=== PATIENT | female | born 1955 | race Caucasian/White ===

== ENCOUNTER → 2016-12-29 | Outpatient (CLI) | payer OTHER | LOC: FIMAGING 10:50 | DX: Z12.39 Encounter for other screening for malignant neoplasm of breast (principal); N64.9 Disorder of breast, unspecified ==

== ENCOUNTER → 2017-06-02 | Outpatient (CLI) | payer OTHER | LOC: FIMAGING 10:52 | DX: Z12.31 Encounter for screening mammogram for malignant neoplasm of breast (principal); Z80.3 Family history of malignant neoplasm of breast | CPT/HCPCS: G0202 ==

== ENCOUNTER 2018-03-12 10:19 | Day surgery (SDC) | payer OTHER ==
--- NOTE | 2018-03-11 15:36 | GHP ---
[f rep st] HISTORY AND PHYSICAL DATE OF ADMISSION: 03/12/2018 HISTORY OF PRESENT ILLNESS: This is a 63-year-old female with a several-month history of right knee pain worsening with use and with time. MRI exams revealed mild osteoarthritic changes with a large i ntra-articular loose body and a complex medial meniscal tear. She wishes to have surgery in order to resolve the problems. ALLERGIES: She lists no drug allergies. CURRENT MEDICATIONS: Include levothyroxine, prednisone and tramadol. PRIOR MEDICAL PROBLEMS: Include thyroid issues. PRIOR SURGERIES: Include total knee replacement with later manipulation. She had thyroid surgery, o rthopedic surgery x1 and other x1. SOCIAL HISTORY: She has never been a smoker. She is a social drinker. PHYSICAL EXAMINATION: HEENT: The patient's pupils are equal, round, and reactive to light. CHEST: Clear to auscultation. HEART: Regular rate and rhythm. ABDOMEN: Soft and nontender. RIGHT KNEE: She has a mild effusion to the knee. She is stable throughout, she is tender to the posterior port ion of the medial joint line with a negative grind sign to the patella. MRI revealed a complex medial meniscal tear. Intra-articular loose body and chondromalacia patella. ASSESSMENT AND PLAN: The patient is status post right knee medial meniscal tear with loose body and mild arthritis. PLAN: Take her to the operating room to undergo a right knee scope. /[id number]/MODL
--- NOTE | 2018-03-12 07:25 | PDHPUP ---
History & Physical Update H&P update statement: This history and physical update is based on an assessment of the patient which was completed after admission or registration (within 24 hours), but prior to the surgery/procedure. H&P update: H&P reviewed & patient examined, no change in patient's condition since H&P completed
[~2018-03-12 10:19] MED LIST: ACETAMINOPHEN 500 MG TAB PO ONE; LR 1,000 ML IV SCH; ceFAZolin 2 GM/DEXTROSE 100 ML IV ONE
[2018-03-12] MEDS ORDERED: LABETALOL HCL 5 MG/ML 20 ML MDV IVP ONE (10:58)
[2018-03-12] MEDS ORDERED: MIDAZOLAM 2 MG/2 ML VIAL IVP ONE (10:59)
[2018-03-12] MEDS ORDERED: LR 1,000 ML IV ONE (11:00)
[2018-03-12] MEDS ORDERED: LIDOCAINE 1% 2 ML INJ ID PRN (11:00)
[2018-03-12] MEDS ORDERED: BUPIVACAINE/EPI 0.5% 30 ML SDV ONE (11:04)
[2018-03-12] MEDS ORDERED: LIDOCAINE 1% 2 ML INJ ONE (11:07)
[2018-03-12] MEDS ORDERED: ACETAMINOPHEN 500 MG TAB ONE (11:07)
[2018-03-12] MEDS ORDERED: CEFAZOLIN 2 GM/DEXTROSE/100 ML BAG IV ONE (11:08)
--- NOTE | 2018-03-12 12:05 | PDANEPAE ---
ANE Past Medical History - Cardiovascular History Hx Hypertension: No Hx Arrhythmias: No Hx Chest Pain: No Hx Coronary Artery / Peripheral Vascular Disease: No Hx CHF / Valvular Disease: No Hx Palpitations: No - Pulmonary History Hx COPD: No Hx Asthma/Reactive Airway Disease: No Hx Recent Upper Respiratory Infection: No Hx Oxygen in Use at Home: No Hx Sleep Apnea: No Sleep Apnea Screening Result - Last Documented: Negative - Neurologic History Hx Cerebrovascular Accident: No Hx Seizures: No Hx Dementia: No - Endocrine History Hx Diabetes: No Hypothyroid: Yes - Renal History Hx Renal Disorders: No - Liver History Hx Hepatic Disorders: No - Neurological & Psychiatric Hx Hx Neurological and Psychiatric Disorders: No - Cancer History Hx Cancer: Yes 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 TOE NAILS REMOVED ANE Review of Systems Review of Systems: - Exercise capacity METS (RN): 4 METS ANE Patient History - Allergies Allergies/Adverse Reactions: No Known Allergies Allergy (Verified 03/05/18 14:15) - Home Medications Home Medications: Acetaminophen 03/05/18 [Last Taken 02/26/18] Aspirin 03/05/18 [Last Taken 02/26/18] Ibuprofen 03/05/18 [Last Taken 02/26/18] Levothyroxine 03/05/18 [Last Taken 03/12/18 06:00] Turmeric 03/05/18 [Last Taken 02/26/18] - NPO status NPO Since - Liquids (Date): 03/12/18 NPO Since - Liquids (Time): 06:00 NPO Since - Solids (Date): 03/11/18 NPO Since - Solids (Time): 18:30 - Smoking Hx Smoking Status: Never smoked - Family Anes Hx Family Hx Anesthesia Complications: none ANE Labs/Vital Signs - Vital Signs Blood Pressure: 160/119 Heart Rate: 75 Respiratory Rate: 14 O2 Sat (%): 96 Height: 167.64 cm Weight: 87.543 kg ANE Physical Exam - Airway Mallampati Score: Class 2 - ASA Status ASA Status: II ANE Anesthesia Plan Anesthesia Plan: GA w LMA
[2018-03-12] MEDS ORDERED: MIDAZOLAM 2 MG/2 ML VIAL ONE (12:27)
[2018-03-12] MEDS ORDERED: PROPOFOL 200 MG/20 ML VIAL ONE (12:28)
[2018-03-12] MEDS ORDERED: LIDOCAINE 2% JELLY 5 ML TUBE ONE (12:28)
[2018-03-12] MEDS ORDERED: fentaNYL 100 MCG/2 ML INJ ONE ×3 (12:28→14:02)
[2018-03-12] MEDS ORDERED: ONDANSETRON 4 MG/2 ML VIAL ONE (12:28)
[2018-03-12] MEDS ORDERED: METOCLOPRAMIDE 10 MG/2 ML VIAL ONE (12:28)
[2018-03-12] MEDS ORDERED: PROMETHAZINE HCL 25 MG/ML INJ IVP PRN ×2 (13:43→13:45)
[2018-03-12] MEDS ORDERED: LACTULOSE 20 GM/30 ML UDCUP PO PRN (13:43)
[2018-03-12] MEDS ORDERED: traMADol 50 MG TAB PO PRN (13:43)
[2018-03-12] MEDS ORDERED: ONDANSETRON 4 MG/2 ML VIAL IVP PRN (13:43)
[2018-03-12] MEDS ORDERED: METOCLOPRAMIDE 10 MG/2 ML VIAL IVP PRN (13:43)
[2018-03-12] MEDS ORDERED: oxyCODONE IR 5 MG TAB PO PRN (13:43)
[2018-03-12] MEDS ORDERED: CYCLOBENZAPRINE 10 MG TAB PO PRN (13:43)
[2018-03-12] MEDS ORDERED: ONDANSETRON DISINTEGRATING 4 MG TAB PO PRN (13:43)
[2018-03-12] MEDS ORDERED: PROMETHAZINE HCL 25 MG SUPPR PR PRN (13:43)
[2018-03-12] MEDS ORDERED: DIPHENOXYLATE/ATROPINE LOMOTIL 1 TAB PO PRN (13:43)
[2018-03-12] MEDS ORDERED: POLYETHYLENE GLYCOL 3350 17 GM PKT PO PRN (13:43)
[2018-03-12] MEDS ORDERED: BISACODYL 10 MG SUPP PR PRN (13:43)
[2018-03-12] MEDS ORDERED: KETOROLAC 15 MG/1 ML SDV IVP ONE (13:43)
[2018-03-12] MEDS ORDERED: TEMAZEPAM 15 MG CAP PO PRN (13:43)
[2018-03-12] MEDS ORDERED: diphenhydrAMINE 25 MG CAP PO PRN (13:43)
[2018-03-12] MEDS ORDERED: MAGNESIUM HYDROXIDE 30 ML UDCUP PO PRN (13:43)
--- NOTE | 2018-03-12 13:43 | POSTOPPROG ---
Post Op Note Date of Operation: 03/12/18 Surgeon: Nivia Arechiga Anesthesia: LMA Pre-op Diagnosis: r mmt/lmt/lb/oa Procedure: r knee scope w/ partial med/lat menisectomy, chondroplasty and rem lb Inf/Abcess present in the surg proc area at time of surgery?: No Depth: Deep Incisional (Fascial) EBL: 50-100
[2018-03-12] MEDS ORDERED: NALOXONE HCL 0.4 MG/ML INJ IVP PRN (13:45)
[2018-03-12] MEDS ORDERED: LR 500 ML IV PRN (13:45)
--- NOTE | 2018-03-12 13:47 | POSTANESTH ---
Post Anesthetic Evaluation Cardiovascular Status: Normal, Stable Respiratory Status: Normal, Stable Level of Consciousness/Mental Status: Can Participate in Eval, Mildly Sleepy, Arousable Pain Control: Adequate, Prn Tx Ordered Nausea/Vomiting Control: Adequate, Prn Tx Ordered Complications Possibly Related to Anesthesia: None Noted
[2018-03-12] MEDS ORDERED: LR 1,000 ML IV SCH (14:00)
[2018-03-12] MEDS: fentaNYL 100 MCG/2 ML INJ IVP PRN ×2 (14:03→14:09)
--- NOTE | 2018-03-12 14:26 | GOP ---
[f rep st] OPERATIVE REPORT DATE OF OPERATION: 03/12/2018 SURGEON: Nivia Arechiga MD ANESTHESIA: Via LMA. PREOPERATIVE DIAGNOSIS: Right knee medial and lateral meniscal tears with osteoarthritis and loose b alexander. POSTOPERATIVE DIAGNOSIS: Right knee medial and lateral meniscal tears with osteoarthritis and loose body, with grade 3 chondral changes to the medial compartment and patellofemoral compartment with a s mall area of grade 4 chondral changes to the lateral femoral condyle. PROCEDURE PERFORMED: 1. Right knee arthroscopy with partial medial and partial lateral meniscectomies. 2. Removal of loose body. 3. Chondroplasty of all 3 compartments. FINDINGS: INDICATIONS: This is a 63-year-old female with a several-month history of right knee pain worsening with use and with time despite multiple conservative measures. MRI exam reveals tearing of the media l meniscus, lesser tearing of the lateral meniscus, some osteoarthritic changes and a loose body in t he suprapatellar pouch. She wishes to have surgery in order to resolve the problem. DESCRIPTION OF PROCEDURE: Patient brought to the operating room after the right side had been identi fied as correct side by the patient, nurse and physician. Once in the operating room she was placed under general anesthesia using LMA. Once asleep, a tourniquet was placed around the upper portion of the right thigh, and both legs placed in appropriate leg-cid. Right lower extremity was then manuel rilely prepped and draped in usual fashion using GSI solution. Once prepped and draped, limb was exs anguinated, tourniquet inflated to 250 mmHg. Incision was made in the superomedial portion of the kn ee with an outflow trocar introduced without difficulty. A second incision was made lateral to the p atellar tendon between the inferior pole of the patella and the tibial plateau with the camera introd uced without difficulty. Inspection of the joint revealed a large loose body in the lateral portion of the suprapatellar pouch, but no loose bodies along the medial and lateral gutter. There were grad e 3 chondral changes to the patella and to the trochlea. Further inspection revealed the AC ligament to be intact. Inspection of the medial compartment revealed tearing of the posterior horn and body of the medial meniscus as well as grade 3 chondral changes to the medial femur and tibia. Inspection of the lateral compartment revealed fraying of the body and posterior horn of the lateral meniscus a long with a chondral flap lesion to the lateral femoral condyle. Therefore, a third incision was mad e medial to the patellar tendon between the inferior pole of the patella and tibial plateau, and alte rnating using a straight biter and a 4.5 mm smooth shaver was used to debride and debulk tears of the medial and lateral meniscus and also remove the loose fragments of cartilage from the medial and lat eral femoral condyles. Loose body was able to be removed using combination of biter and grasper, the n a shaver was used to remove the loose fragments of cartilage from the patellofemoral joint. Once c ompleted, all instruments were removed from the knee, with 30 cc of Marcaine infused in the knee join t. The 3 portal sites were closed using 3-0 nylon suture in a [id number] type stitch. The woun ds were dressed with Xeroform, 4 x 4, wrapped in Webril. Tourniquet was deflated at 33 minutes. Leg was completely undraped in the operating room. The right leg was taken out of its leg-cid, tourn iquet removed from the thigh, and an Jori wrap placed around the knee. The left leg was removed from its leg-cid. She was placed supine. She was woken up, extubated, transferred onto a stretcher an d sent to recovery room in good condition. TOURNIQUET TIME: 33 minutes. /[id number]/MODL
[2018-03-12] MEDS ORDERED: oxyCODONE IR 5 MG TAB ONE (15:08)
[2018-03-12 15:56] VITALS: BP 158/96
[2018-03-12] MEDS ORDERED: ACETAMINOPHEN 325 MG TAB PO SCH (18:00)
[2018-03-12] MEDS ORDERED: FAMOTIDINE 20 MG TAB PO SCH (21:00)
[2018-03-12] MEDS ORDERED: SENNOSIDES/DOCUSATE SODIUM TAB PO SCH (21:00)
== END 2018-03-12 15:40 | disposition home or self-care (01) ==
LOC: FSGY 10:19
PROVIDERS: ATTEND Orthopaedic Surgery
PROC: 0SB Lower Joints, Excision (ICD-10-PCS; principal; 2018-03-12 12:15)
PROC: 0MQN4ZZ Repair Right Knee Bursa and Ligament, Percutaneous Endoscopic Approach (ICD-10-PCS; principal; 2018-03-12 12:15)
DX: M23.231 Derangement of other medial meniscus due to old tear or injury, right knee (principal); M23.261 Derangement of other lateral meniscus due to old tear or injury, right knee; M17.11 Unilateral primary osteoarthritis, right knee; M23.41 Loose body in knee, right knee
CPT/HCPCS: J0690; J2250; J2405; J2704; J2765; J3010

== ENCOUNTER → 2018-04-10 | Outpatient (CLI) | payer OTHER ==
[~2018-04-10] MED LIST changes: -ACETAMINOPHEN 500 MG TAB PO ONE; +GADOBUTROL 10 ML VIAL IVP ONE; -LR 1,000 ML IV SCH; -ceFAZolin 2 GM/DEXTROSE 100 ML IV ONE
== END ==
LOC: FIMAGING 10:16
PROVIDERS: ATTEND Surgery
DX: R92.8 Other abnormal and inconclusive findings on diagnostic imaging of breast (principal); Z91.89 Other specified personal risk factors, not elsewhere classified
CPT/HCPCS: 0159T; A9585; C8908

== ENCOUNTER → 2018-11-02 | Outpatient (CLI) | payer OTHER | LOC: FIMAGING 09:47 | PROVIDERS: ATTEND Family Medicine | DX: Z12.31 Encounter for screening mammogram for malignant neoplasm of breast (principal) ==